=== PATIENT | male | born 1985 | race Two or more races ===

== ENCOUNTER 2016-06-01 05:29 | Emergency (ER) | payer MEDICAID ==
[~2016-06-01] VITALS: Ht 170.2 cm; Wt 86.2 kg
[2016-06-01] MEDS ORDERED: LORazepam 2MG/ML-1ML VIAL IV ONE (07:30)
[2016-06-01 07:42] LABS: Basophils # (auto) 0 uL; Basophils % (auto) 0.5 % (0.0-2.0); Eosinophils # (auto) 0.2 uL; Eosinophils % (auto) 3.5 % (0.0-7.0); Hematocrit 46.1 % (41.0-53.0); Hemoglobin 15.3 g/dL (13.5-17.5); Lymphocytes # (auto) 1.6 uL; Lymphocytes % (auto) 23.7 % (10.0-50.0); Mean Corpuscular Hemoglobin 30.5 pg (28.0-32.0); Mean Corpuscular Hgb Conc. 33.1 g/dL (32.0-36.0); Mean Corpuscular Volume 92.1 fL (80.0-100.0); Mean Platelet Volume 8.6 fL (7.4-10.4); Monocytes # (auto) 0.5 uL; Monocytes % (auto) 7.1 % (0.0-12.0); Neutrophils # (auto) 4.4 uL; Neutrophils % (auto) 65.2 % (37.0-80.0); Platelet Count (auto) 227 10^3/uL (140-450); Red Cell Distribution Width 13.6 % (11.6-16.0); White Blood Cell 6.8 10^3/uL (4.4-10.8)
[2016-06-01 08:06] LABS: BUN/Creatinine Ratio 28.9; Bilirubin, Total 0.7 mg/dL (0.2-1.0); Calcium 8.6 mg/dL (8.5-10.1); Magnesium 2.5 mg/dL (1.6-2.6); Potassium 3.9 mmol/L (3.5-5.1); Total Protein 7.1 g/dL (6.4-8.2)
[2016-06-01 10:54] VITALS: BP 109/62
[2016-06-01 11:53] LABS: Urine RBC None Seen /hpf (0 - 3)
[2016-06-01 12:09] LABS: Urine Bilirubin Negative (Negative); Urine Blood Negative /uL (Negative); Urine Color Yellow (Yellow); Urine Glucose Normal (Normal); Urine Nitrite Negative (Negative); Urine Urobilinogen Normal (Negative); Urine pH 5.5 (5.0-8.0)
[2016-06-01 12:10] LABS: Urine Ketone 1+ (Negative)
== END 2016-06-01 12:22 | disposition home or self-care (01) ==
LOC: ER 05:29 → EDBD 05:29 → ER 12:22
DX: G40.909 Epilepsy, unspecified, not intractable, without status epilepticus (principal); F12.10 Cannabis abuse, uncomplicated
CPT/HCPCS: 36415; 80053; 81001; 82542; 83735; 85025; 93005; 96374; 99285; J2060

== ENCOUNTER 2024-09-11 10:42 | Inpatient (IN) | payer MEDICAID, OTHER ==
[~2024-09-11] VITALS: Ht 170.2 cm; Wt 90.5 kg
[2024-09-11 11:19] VITALS: PULSE 83; RESP 20; O2SAT 98
--- NOTE | 2024-09-11 11:33 | ED.PDOC ---
GI ASSESSMENT HPI Comments 38y M who presents to the ED for chief complaint of abdominal pain. Pt states he has been having abdominal pain for the past 1x week. Pt states he went to urgent care at for further evaluation and states they found blood in his urine sample and referred him to the ED for further evaluation. Pt in the ED, states he has also been having RUQ and LUQ abdominal pain. Pt states the pain is intermittent, tightness in nature, with associated symptoms of nausea, vomiting chills and fevers and diarrhea. Pt states he ate out Monday 2 days prior and states he has been having 1x diarrhea episodes for the past 2 days. Pt denies having taken any medications for his symptoms. Pt otherwise states he has history of HTN and epilepsy but states he does not take medications for them currently. Pt does state he has history of 2x hernia repairs in the past. Pt denies any other symptoms at this time. Chief Complaint: Abdominal Pain Time Seen by MD: 11:31 Reviewed Notes: Medications, Allergies Allergies: Coded Allergies: NO KNOWN ALLERGIES (Unverified , 12/26/22) Home Meds No Active Prescriptions or Reported Meds Information Source: Patient Mode of Arrival: Ambulatory Past Medical History PAST MEDICAL HISTORY: HTN, Seizures Surgical History: Hernia Repair Family History Family History: Reviewed,noncontributory to illness Social History Smoker: Non-Smoker Alcohol: Denies ETOH Use Drugs: Denies Drug Use Lives In: Home Constitutional: reports: chills, fever; denies: diaphoresis, fatigue, malaise, sweats, weakness, others EENTM: denies: blurred vision, double vision, ear bleeding, ear discharge, ear drainage, ear pain, ear ringing, eye pain, eye redness, hearing loss, mouth pain, mouth swelling, nasal discharge, nose bleeding, nose congestion, nose pain, photophobia, tearing, throat pain, throat swelling, voice changes, others Respiratory: denies: cough, hemoptysis, orthopnea, SOB at rest, shortness of breath, SOB with excertion, stridor, wheezing, others Cardiovascular: denies: chest pain, dizzy spells, diaphoresis, Dyspnea on exertion, edema, irregular heart beat, left arm pain, lightheadedness, palpitations, PND, syncope, others Gastrointestinal: reports: nausea, vomiting; denies: abdomen distended, abdominal pain, blood streaked bowels, constipated, diarrhea, dysphagia, difficulty swallowing, hematemesis, melena, poor appetite, poor fluid intake, rectal bleeding, rectal pain, others Genitourinary: reports: hematuria; denies: burning, dysuria, flank pain, frequency, incontinence, penile discharge, penile sore, pain, testicle pain, testicle swelling, urgency, others Neurological: denies: dizziness, fainting, headache, left sided numbness, left sided weakness, numbness, paresthesia, pre-existing deficit, right sided numbness, right sided weakness, seizure, speech problems, tingling, tremors, weakness, others Musculoskeletal: denies: back pain, gout, joint pain, joint swelling, muscle pain, muscle stiffness, neck pain, others Integumetry: denies: bruises, change in color, change in hair/nails, dryness, laceration, lesions, lumps, rash, wounds, others Allergic/Immunocompromised: denies: Difficulty Healing, Frequent Infections, Hives, Itching, others Hematologic/Lymphatic: denies: anemia, blood clots, easy bleeding, easy bruising, swollen glands, others Endocrine: denies: excessive hunger, excessive sweating, excessive thirst, excessive urination, flushing, intolerance to cold, intolerance to heat, unexpla ined weight gain, unexplained weight loss, others Psychiatric: denies: anxiety, bipolar disorder, depression, hopeless, panic disorder, schizophrenia, sleepless, suicidal, others All Other Systems: Reviewed and Negative Physical Exam General Appearance: Mild Distress HEENT: Other (Pupils and face symmetric. Moist mucous membranes.) Neck: Full Range of Motion, Normal Inspection Respiratory: Lungs Clear, No Accessory Muscle Use, No Respiratory Distress, Normal Breath Sounds Cardiovascular: No Edema, No JVD, Regular Rate/Rhythm Breast Exam: Deferred Gastrointestinal: Epigastric, LUQ, Soft Genitalia: Deferred Pelvic: Deferred Rectal: Deferred Extremities: Normal inspection, Normal range of motion, Non-tender, No pedal e kaylene Neurologic: Alert (Oriented x4), Normal Affect, Normal Mood, Other (Ambulatory) Cerebellar Function: NOT DONE Reflexes: NOT DONE Skin: Dry, Normal Color, Warm Lymphatic: NOT DONE Was a procedure done? Was a procedure done?: No GI differential Dx Differential Diagnosis: Appendicitis, Cholangitis, Cholecystitis, Diverticular disease, Gastritis/PUD, Gastroenteritis, Hepatitis, Inflammatory BD, Pancreatitis, UTI, Dehydration, Electrolyte Imbalance, Food Poisoning, Bacterial, Viral, Hypovolemia, Stress Ulcer, Kidney Stone X-Ray, Labs, Meds, VS Vital Signs Date Time Temp Pulse Resp B/P (MAP) Pulse Ox O2 Delivery O2 Flow Rate FiO2 09/11/24 12:24 83 18 152/97 09/11/24 11:38 83 20 138/85 09/11/24 11:19 83 20 98 Room Air* 0 21 09/11/24 11:18 98.3 83 20 138/85 (102) 98 98.3 09/11/24 10:56 98.1 84 18 156/92 (113) 98 98.1 Lab Test 09/11/24 12:53 09/11/24 11:20 09/11/24 10:58 Range/Units Lactic Acid Level 2.0 0.4-2.0 mmol/L White Blood Count 11.3 H 4.4-10.8 10^3/uL Red Blood Count 4.82 4.5-5.90 10^6/uL Hemoglobin 15.3 13.5-17.5 g/dL Hematocrit 44.4 41.0-53.0 % Mean Corpuscular Volume 92.2 80.0-100.0 fL Mean Corpuscular Hemoglobin 31.7 28.0-32.0 pg Mean Corpuscular Hemoglobin Concent 34.4 32.0-36.0 g/dL Red Cell Distribution Width 13.7 11.8-14.3 % Platelet Count 241 140-450 10^3/uL Mean Platelet Volume 8.6 6.9-10.8 fL Neutrophils (%) (Auto) 80.0 37.0-80.0 % Lymphocytes (%) (Auto) 10.6 10.0-50.0 % Monocytes (%) (Auto) 7.2 0.0-12.0 % Eosinophils (%) (Auto) 1.9 0.0-7.0 % Basophils (%) (Auto) 0.3 0.0-2.0 % Neutrophils # (Auto) 9.1 H 1.6-8.6 10 ^3/uL Lymphocytes # (Auto) 1.2 0.4-5.4 10 ^3/uL Monocytes # (Auto) 0.8 0-1.3 10 ^3/uL Eosinophils # (Auto) 0.2 0-0.8 10 ^3/uL Basophils # (Auto) 0 0-0.2 10 ^3/uL Nucleated Red Blood Cells 0.0 % Sodium Level 136 136-145 mmol/L Potassium Level 3.8 3.5-5.1 mmol/L Chloride Level 103 98-107 mmol/L Carbon Dioxide Level 23 20-31 mmol/L Anion Gap 10 5-15 Blood Urea Nitrogen 13 9-23 mg/dL Creatinine 0.80 0.700-1.30 mg/dL Glomerular Filtration Rate Calc 115 >90 mL/min BUN/Creatinine Ratio 16.3 10.0-20.0 Serum Glucose 94 74-106 mg/dL Calcium Level 9.6 8.7-10.4 mg/dL Total Bilirubin 1.9 H 0.2-1.0 mg/dL Aspartate Amino Transferase (AST) 82 H 13-40 U/L Alanine Aminotransferase (ALT) 308 H 7-40 U/L Alkaline Phosphatase 409 H 46-116 U/L Total Protein 7.5 5.7-8.2 g/dL Albumin 5.1 H 3.2-4.8 g/dL Lipase 69 H 12-53 U/L Urine Color Dark-yellow Yellow Urine Clarity Clear Clear Urine pH 6.5 5.0-9.0 Urine Specific [place] 1.038 H 1.001-1.035 Urine Protein 1+ H Negative Urine Ketones 2+ H Negative Urine Blood Negative Negative /uL Urine Nitrite Negative Negative Urine Bilirubin 1+ Negative Urine Urobilinogen 12 H Negative mg/dL Urine Leukocyte Esterase Negative Negative /uL Urine RBC 1 0 - 3 /hpf Urine Microscopic WBC 1 0-3 /HPF Urine Squamous Epithelial Cells None seen <5 /hpf Urine Bacteria None seen None Seen /hpf Urine Mucus Moderate None Seen Urine Glucose Normal Normal mg/dL Current Medications Medications (Trade) Dose Ordered Sig/Georgina Route Start Time Stop Time Status Last Admin Sodium Chloride 2,000 ml @ 1,000 mls/hr Q2H ONCE IV 09/11/24 11:15 09/11/24 13:14 DC 09/11/24 11:38 Ondansetron HCl (Zofran) 4 mg ONCE ONCE IV 09/11/24 11:15 09/11/24 11:16 DC 09/11/24 11:36 Morphine Sulfate 4 mg ONCE ONCE IV 09/11/24 11:15 09/11/24 11:16 DC 09/11/24 11:38 Pantoprazole Sodium (Protonix) 40 mg ONCE ONCE IV 09/11/24 11:15 09/11/24 11:16 DC 09/11/24 11:36 Piperacillin Sod/ Tazobactam Sod 100 ml @ 100 mls/hr ONCE ONCE IV 09/11/24 12:45 09/11/24 13:44 DC 09/11/24 13:32 [place] [address] Ph: [phone] DIAGNOSTIC IMAGING Diagnostic Imaging Report : [id number] Signed PATIENT: ISATU MCFARLANE AACCT: [id number] UNIT: [id number] : 1985 LOC: ER ROOM / BED: / AGE / SEX: 38 / M ADM STATUS: REG ER SERVICE 1104 ORDERING PHYSICIAN: RAKAN CARTER MD PROCEDURE(s): ABPL - CT AB PEL WO CON-NO ORAL OR IV REASON: upper abd pain, n/v/d, hematuria ORDER NUMBER(s): [id number], ACCESSION NUMBER(s): [id number] CLINICAL INFORMATION: Upper abdominal pain. Nausea, vomiting, diarrhea. Hematuria. TECHNIQUE: Axial CT images of the abdomen and pelvis were obtained without IV contrast. Coronal and sagittal reformatted images were obtained, reviewed, and stored. Evaluation of the parenchymal organs is limited without IV contrast. Evaluation of the bowel and mesentery is limited without oral contrast. All CT scans at this medical facility are performed using dose modulation techniques as appropriate to a performed exam including the following: Automated exposure control was utilized; adjustment of the MA and/or KV according to patient size; and use of iterative reconstruction technique. CTDIvol = 12.3 mGy DLP = 678.96 mGy-cm COMPARISON: None FINDINGS: Lung bases: Lung bases are clear. Liver: Grossly unremarkable in its noncontrast enhanced appearance. No abnormal density or focal lesion identified. Biliary: Mild layering density in the gallbladder, possible sludge or layering gallstones. Spleen: Unremarkable. Pancreas: Grossly unremarkable in its noncontrast enhanced appearance. Adrenal glands: Unremarkable. No mass. Kidneys: No hydronephrosis. No renal or ureteral calculi. Aorta/Vascular: No aneurysm or significant calcification. Retroperitoneum: No mass or lymphadenopathy. Bowel/mesentery: No small bowel obstruction. Nonspecific nondilated fluid-filled small bowel loops. Appendix is visualized and appears unremarkable. Scattered colonic diverticula without adjacent inflammatory changes to suggest diverticulitis. Pelvic organs: Grossly unremarkable. Bladder: Bladder is underdistended and suboptimally evaluated. No gross abnormality identified. Abdominal wall: Moderate-sized direct fat containing left inguinal hernia. There is a small fat containing right inguinal hernia. Bones: No acute fracture or suspicious intraosseous lesion. IMPRESSION: 1. Scattered colonic diverticula without adjacent inflammatory changes to suggest diverticulitis. 2. Nonspecific nondilated fluid-filled small bowel loops. Findings may be seen with ileus or enteritis in the appropriate clinical setting. No small bowel obstruction. 3. Moderate fat containing left inguinal hernia. Small fat containing right inguinal hernia. 4. Layering density in the gallbladder, possible sludge or layering gallstones. Correlate with clinical findings. If clinically indicated, ultrasound could be obtained. ATED BY: SEB GAMEZ DO DICTATED DATE/TIME: 09/11/24 113 SIGNED BY: SEB GAMEZ DO SIGNED DATE/TIME: 09/11/24 1138 CC: [place] [address] Ph: [phone] DIAGNOSTIC IMAGING Diagnostic Imaging Report : [id number] Signed PATIENT: ISATU MCFARLANECCT: [id number] UNIT: [id number] : 1985 LOC: ER ROOM / BED: / AGE / SEX: 38 / M ADM STATUS: REG ER SERVICE 1240 ORDERING PHYSICIAN: RAKAN CARTER MD PROCEDURE(s): ABDL - ABDOMEN LIMITED REASON: RUQ pain ORDER NUMBER(s): [id number], ACCESSION NUMBER(s): [id number] INDICATION: RUQ pain TECHNIQUE: Multiple real-time sonographic images were obtained of the right upper quadrant. COMPARISON: None FINDINGS: The liver demonstrates increased echotexture without focal mass lesions. The liver measures 18.1 cm. There is no intrahepatic or extrahepatic ductal dilatation. The common duct measures 0.6 cm. The gallbladder is without evidence of stone or sludge. The gallbladder wall measures 0.3 cm and is within normal limits. The right kidney measures 11.7 cm. The right kidney is normal in contour, size, and shape. The echogenicity is normal. There is no hydronephrosis. The pancreas is not well visualized due to overlying bowel gas. IMPRESSION: Hepatic steatosis. Hepatomegaly. ATED BY: ENRICO ALANIS MD DICTATED DATE/TIME: 09/11/241346 SIGNED BY: ENRICO ALANIS MD SIGNED DATE/TIME: 09/11/241346 CC: X-Ray, Labs, Meds, VS Comment 38-year-old male with a history of hypertension and seizures referred by urgent care complaining of upper abdominal pain, nausea, vomiting and diarrhea Vitals remarkable for BP 156/92 Exam remarkable for right greater than left upper quadrant and epigastric tenderness to palpation Rhythm strip independently interpreted by me: Sinus rhythm, rate 84, no ectopy. CT abdomen and pelvis IMPRESSION: 1. Scattered colonic diverticula without adjacent inflammatory changes to suggest diverticulitis. 2. Nonspecific nondilated fluid-filled small bowel loops. Findings may be seen with ileus or enteritis in the appropriate clinical setting. No small bowel obstruction. 3. Moderate fat containing left inguinal hernia. Small fat containing right inguinal hernia. 4. Layering density in the gallbladder, possible sludge or layering gallstones. Correlate with clinical findings. If clinically indicated, ultrasound could be obtained. Right upper quadrant ultrasound pending CBC remarkable for WBC 11.3, CMP remarkable for total bili 1.9, AST 82, ALT 308, alkaline phos 409, lipase 69, UA positive for ketones, protein and bili but no blood Patient treated with the following in the ED: 2 L 0.9 normal saline IV bolus, morphine 4 mg IV, Zofran 4 mg IV, Protonix 40 mg IV, Zosyn 4.5 g IV On re-evaluation, patient states pain has improved. Vitals were stable. Plan is to admit the patient for GI evaluation. Time of 1ST Reevaluation: 12:38 Reevaluation 1ST: Improved Patient Education/Counseling: Diagnosis, Treatment Family Education/Counseling: No Family Present SEPSIS Sepsis Screen Date sepsis recognized/suspect: Sep 11, 2024 Time Sepsis recognized/suspect: 1058 Recent Procedure: No On Antibiotic Therapy: No Respiratory Rate >20: No Heart Rate >90: No Temp<36 C (96.8 F) or >38.3 C: No SBP <90 or MAP <65 mmHG: No New Acute Mental Status Change: No Is the patient on CPAP, BIPAP,: No Physician Orders Ct Ab Pel Wo Con-No Oral Or Iv (09/11/24 11:04) Blood Culture (09/11/24 12:38) Abdomen Limited (09/11/24 12:40) Pantoprazole (Protonix) (09/12/24 10:00) Metronidazole 500mg/100ml (Flagyl 500mg/ (09/11/24 14:00) Hydralazine Injection (Apresoline Inject (09/11/24 13:30) Allergies (09/11/24 13:17) Code Status (09/11/24 13:17) Sodium Chloride 0.9% (09/11/24 13:30) Oxygen Per Hour (09/11/24 13:17) Hydrocodone-Acet 5/325mg Tab ([place] 5/32 (09/11/24 13:30) Ondansetron Hcl (Zofran) (09/11/24 13:30) Docusate Sodium Capsule (Colace Capsule) (09/11/24 13:30) Complete Blood Count (09/12/24 04:00) Comprehensive Metabolic Panel (09/12/24 04:00) Condition: Serious (09/11/24 13:17) Acetaminophen Tablet (Tylenol Tablet) (09/11/24 13:30) Clear Liq Diet (09/11/24 Lunch) Bedrest With Bathroom Privileg (09/11/24 13:17) Morphine Sulfate Injection (09/11/24 13:30) Sequential Compression Device (09/11/24 ) Ceftriaxone 1gm/50ml D5w (Rocephin) (09/11/24 13:52) Vital Signs Date Time Temp Pulse Resp B/P (MAP) Pulse Ox O2 Delivery O2 Flow Rate FiO2 09/11/24 12:24 83 18 152/97 09/11/24 11:38 83 20 138/85 09/11/24 11:19 83 20 98 Room Air* 0 21 09/11/24 11:18 98.3 83 20 138/85 (102) 98 98.3 09/11/24 10:56 98.1 84 18 156/92 (113) 98 98.1 Laboratory Tests Test 09/11/24 11:20 09/11/24 12:53 White Blood Count 11.3 10^3/uL (4.4-10.8) H Lactic Acid Level 2.0 mmol/L (0.4-2.0) Medications Medications Dose Ordered Sig/Georgina Route Start Time Stop Time Status Last Admin Dose Admin Morphine Sulfate 4 mg ONCE ONCE IV 09/11/24 11:15 09/11/24 11:16 DC 09/11/24 11:38 Ondansetron HCl 4 mg ONCE ONCE IV 09/11/24 11:15 09/11/24 11:16 DC 09/11/24 11:36 Pantoprazole Sodium 40 mg ONCE ONCE IV 09/11/24 11:15 09/11/24 11:16 DC 09/11/24 11:36 Piperacillin Sod/ Tazobactam Sod 100 ml @ 100 mls/hr ONCE ONCE IV 09/11/24 12:45 09/11/24 13:44 DC 09/11/24 13:32 Sodium Chloride 2,000 ml @ 1,000 mls/hr Q2H ONCE IV 09/11/24 11:15 09/11/24 13:14 DC 09/11/24 11:38 Departure 1 Departure Time of Disposition: 12:39 Impression: Primary Impression: Abdominal pain Qualified Codes: R10.10 - Upper abdominal pain, unspecified Additional Impressions: Vomiting and diarrhea Transaminitis Hyperbilirubinemia Disposition: ADMITTED INPATIENT Admit to: Med Surg Condition: Guarded e-Prescriptions No Active Prescriptions or Reported Meds Critical Care Note Critical Care Time?: No Stability Stability form required: No Heart Score Heart Score: Heart Score Response (Comments) Value History N/A 0 EKG N/A 0 Age N/A 0 Risk Factors N/A 0 Troponin N/A 0 Total 0 I personally scribed for RAKAN CARTER MD ([email or web address]) on 09/11/24 at 11:33. Electronically submitted by Delvin CARRIZALES). I personally scribed for RAKAN CARTER MD ([facility]) on 09/11/24 at 11:50. Electronically submitted by Delvin Santa ([facility]). I personally scribed for RAKAN CARTER MD ([facility]) on 09/11/24 at 14:15. Electronically submitted by Delvin Santa ([facility]). RAKAN CARTER MD Sep 11, 2024 11:33
[2024-09-11] MEDS: PANTOPRAZOLE 40 MG/10 ML VIAL INJ IV ONE (11:36)
[2024-09-11] MEDS: ONDANSETRON HCL 4 MG/2 ML VIAL IV ONE (11:36)
[2024-09-11] MEDS: MORPHINE SULFATE 4 MG/ML SYR/VIAL IV ONE (11:38)
[2024-09-11] MEDS: SODIUM CHLORIDE 0.9% 2,000 ML IV ONE (11:38)
--- NOTE | 2024-09-11 11:40 | DVH ---
CLINICAL INFORMATION: Upper abdominal pain. Nausea, vomiting, diarrhea. Hematuria. TECHNIQUE: Axial CT images of the abdomen and pelvis were obtained without IV contrast. Coronal and s agittal reformatted images were obtained, reviewed, and stored. Evaluation of the parenchymal organs is limited without IV contrast. Evaluation of the bowel and mesentery is limited without oral contras t. All CT scans at this medical facility are performed using dose modulation techniques as appropriat e to a performed exam including the following: Automated exposure control was utilized; adjustment of the MA and/or KV according to patient size; and use of iterative reconstruction technique. CTDIvol = 12.3 mGy DLP = 678.96 mGy-cm COMPARISON: None FINDINGS: Lung bases: Lung bases are clear. Liver: Grossly unremarkable in its noncontrast enhanced appearance. No abnormal density or focal lesi on identified. Biliary: Mild layering density in the gallbladder, possible sludge or layering gallstones. Spleen: Unremarkable. Pancreas: Grossly unremarkable in its noncontrast enhanced appearance. Adrenal glands: Unremarkable. No mass. Kidneys: No hydronephrosis. No renal or ureteral calculi. Aorta/Vascular: No aneurysm or significant calcification. Retroperitoneum: No mass or lymphadenopathy. Bowel/mesentery: No small bowel obstruction. Nonspecific nondilated fluid-filled small bowel loops. A ppendix is visualized and appears unremarkable. Scattered colonic diverticula without adjacent infla mmatory changes to suggest diverticulitis. Pelvic organs: Grossly unremarkable. Bladder: Bladder is underdistended and suboptimally evaluated. No gross abnormality identified. Abdominal wall: Moderate-sized direct fat containing left inguinal hernia. There is a small fat conta ining right inguinal hernia. Bones: No acute fracture or suspicious intraosseous lesion. IMPRESSION: 1. Scattered colonic diverticula without adjacent inflammatory changes to suggest diverticulitis. 2. Nonspecific nondilated fluid-filled small bowel loops. Findings may be seen with ileus or enteriti s in the appropriate clinical setting. No small bowel obstruction. 3. Moderate fat containing left inguinal hernia. Small fat containing right inguinal hernia. 4. Layering density in the gallbladder, possible sludge or layering gallstones. Correlate with clinic al findings. If clinically indicated, ultrasound could be obtained.
[2024-09-11 11:50] LABS: Urine Protein, UAD 1+ (Negative)
[2024-09-11 11:59] LABS: Hematocrit 44.4 % (41.0-53.0); Hemoglobin 15.3 g/dL (13.5-17.5); Mean Corpuscular Hemoglobin 31.7 pg (28.0-32.0); Mean Corpuscular Volume 92.2 fL (80.0-100.0); Nucleated Red Blood Cells % 0.0 %
[2024-09-11 12:16] LABS: Anion Gap 10 (5-15); BUN/Creatinine Ratio 16.3 (10.0-20.0); Blood Urea Nitrogen 13 mg/dL (9-23); Calcium 9.6 mg/dL (8.7-10.4); Carbon Dioxide 23 mmol/L (20-31); Chloride 103 mmol/L (98-107); Glucose 94 mg/dL (74-106); Potassium 3.8 mmol/L (3.5-5.1); Sodium 136 mmol/L (136-145); Total Protein 7.5 g/dL (5.7-8.2)
[2024-09-11 12:20] LABS: Alanine Aminotransferase 308 U/L (7-40); Albumin 5.1 g/dL (3.2-4.8); Alkaline Phosphatase 409 U/L (46-116); Bilirubin, Total 1.9 mg/dL (0.2-1.0); Lipase 69 U/L (12-53)
[2024-09-11] MEDS ORDERED: ONDANSETRON HCL 4 MG/2 ML VIAL IV PRN (13:30)
[2024-09-11] MEDS ORDERED: DOCUSATE SOD 100 MG CAP PO PRN (13:30)
[2024-09-11] MEDS: SODIUM CHLORIDE 0.9% 1,000 ML IV SCH (13:30)
[2024-09-11] MEDS ORDERED: MORPHINE SULFATE INJ 2 MG/ml SYRG IV PRN ×2 (13:30→15:45)
[2024-09-11] MEDS ORDERED: hydrALAZINE HCL 20 MG/ML VL IV PRN (13:30)
[2024-09-11] MEDS ORDERED: ACETAMINOPHEN 325 MG TAB PO PRN (13:30)
[2024-09-11] MEDS: PIPERACILLIN-TAZO 4.5GM 100 ML IV ONE (13:32)
--- NOTE | 2024-09-11 13:50 | DVH ---
INDICATION: RUQ pain TECHNIQUE: Multiple real-time sonographic images were obtained of the right upper quadrant. COMPARISON: None FINDINGS: The liver demonstrates increased echotexture without focal mass lesions. The liver measure s 18.1 cm. There is no intrahepatic or extrahepatic ductal dilatation. The common duct measures 0.6 cm. The gallbladder is without evidence of stone or sludge. The gallbladder wall measures 0.3 cm and is w ithin normal limits. The right kidney measures 11.7 cm. The right kidney is normal in contour, size, and shape. The echoge nicity is normal. There is no hydronephrosis. The pancreas is not well visualized due to overlying bowel gas. IMPRESSION: Hepatic steatosis. Hepatomegaly.
[2024-09-11] MEDS: cefTRIAXone 1GM/50ML D5W 50 ML IV SCH (14:30)
[2024-09-11] MEDS ORDERED: NITROGLYCERIN 0.4 MG SL TAB SL PRN (15:45)
--- NOTE | 2024-09-11 15:45 | DVHHP2 ---
History of Present Illness Reason for Visit: Acute abdominal pain History of Present Illness The patient is a 38-year-old male with past medical history of hypertension and seizures disorder noncompliant with medication regimen presented to [facility] ED with complaint of abdominal pain. Patient reports he has been experiencing abdominal pain for the past 1 week, went to [facility] urgent care and was found to have blood in his urine sample and was referred to the ED for further evaluation. Patient was seen and evaluated in the ED with upper quadrant abdominal pain, intermittent, tightness in nature, rating 8/10 numeric scale, associated with nausea, vomiting, chills, fever, and diarrhea. Laboratory data shows WBC 11.3, platelets 241, sodium 136, potassium 3.8, BUN 13, creatinine 0.80, glucose 94, calcium 9.6, total bilirubin 1.8, alkaline phos for 0 nine, AST 82, ALT 308, lipase 69, blood pressure 152/97, heart rate 83, temperature 98.3 F, O2 saturation 98% on room air. Abdomen/pelvis CT revealing scattered colonic diverticula without adjacent inflammatory changes to suggest diverticulitis; nonspecific nondilated fluid filled small bowel loops, finding may be seen with ileus or enteritis; moderate fat containing left inguinal hernia, left fat containing right inguinal hernia; layering density in the gallbladder, possible sludge or layering gallstones. Single organ ultrasound revealing hepatomegaly, hepatic steatosis. Past Medical History HTN, Seizures Past Surgical History Hernia Repair Family History Reviewed, noncontributory to the management of this case. Past Social History The patient lives at home, denies smoking, alcohol or illicit drugs abuse. Review of Systems Constitutional: Yes: Fever, Chills; No: Sweats, Weakness, Malaise, Other Eyes: No: Pain, Vision change, Conjunctivae inflammation, Eyelid inflammation, Other, Redness ENT: No: Ear pain, Ear discharge, Nose pain, Nose discharge, Nose congestion, Mouth pain, Mouth swelling, Throat pain, Throat swelling, Other Respiratory: No: Cough, Dry, Shortness of breath, SOB with excertion, Wheezing, Hemoptysis, Pleuritic Pain, Sputum, Wheezing, Other Cardiovascular: No: Chest Pain, Palpitations, Orthopnea, Paroxysmal Noc. Dyspnea, Edema, Lt Headedness, Other Gastrointestinal: Nausea, Vomiting; No: Abdominal Pain, Diarrhea, Constipation, Melena, Hematochezia, Other Genitourinary: No Dysuria, No Frequency, No Incontinence; Hematuria; No Retention, No Other Musculoskeletal: No: other, neck pain, shoulder pain, arm pain, back pain, hand pain, leg pain, foot pain Skin: No: Rash, Lesions, Jaundice, Bruising, Other Neurological: No: Weakness, Numbness, Incoordination, Change in speech, Confusion, Seizures, Other Allergies: Coded Allergies: NO KNOWN ALLERGIES (Unverified , 12/26/22) Medications Current Medications Medications Dose Ordered Sig/Georgina Route Start Time Stop Time Status Last Admin Dose Admin Pantoprazole Sodium 40 mg DAILY IV 09/12/24 10:00 Metronidazole 100 ml @ 100 mls/hr Q8HR IV 09/11/24 14:00 09/11/24 14:50 100 MLS/HR Ceftriaxone Sodium 50 ml @ 100 mls/hr DAILY@09 IV 09/11/24 13:52 09/11/24 14:30 100 MLS/HR Hydralazine HCl 10 mg Q6HP PRN IV 09/11/24 13:30 Sodium Chloride 1,000 ml @ 60 mls/hr [id number] IV 09/11/24 13:30 Acetaminophen/ Hydrocodone Bitart 1 tab Q4HP PRN PO 09/11/24 13:30 Ondansetron HCl 4 mg Q4HP PRN IV 09/11/24 13:30 Docusate Sodium 100 mg BIDPRN PRN PO 09/11/24 13:30 Acetaminophen 650 mg Q6HP PRN PO 09/11/24 13:30 Morphine Sulfate 2 mg Q4HPRN PRN IV 09/11/24 13:30 Exam Vital Signs Vital Signs Date Time Temp Pulse Resp B/P (MAP) Pulse Ox O2 Delivery O2 Flow Rate FiO2 09/11/24 14:58 78 18 134/96 (109) 99 09/11/24 11:19 Room Air* 0 21 09/11/24 11:18 98.3 98.3 General Appearance: Alert, Oriented X3, Cooperative, No acute distress HEENT: Atraumatic, PERRLA, EOMI, Mucous membr. moist/pink Respiratory: Clear to auscultation, Normal air movement Cardiovascular: Regular rate, Normal S1, Normal S2, No murmurs Abdominal: Normal bowel sounds, Soft, No hepatospenomegaly, No masses, Other (Reports tenderness) Extremities: No clubbing, No cyanosis, No edema, Normal pulses, No tenderness/swelling Skin: No rashes, No breakdown, No significant lesion Neuro: Normal gait, Normal speech, Strength at 5/5 X4 ext, Normal tone, Sensation intact, Cranial nerves 3-12 NL, Reflexes 2+ Psych/Mental Status: Mental status NL, Mood NL Labs/Xrays Labs Test 09/11/24 12:53 09/11/24 11:20 09/11/24 10:58 Range/Units Lactic Acid Level 2.0 0.4-2.0 mmol/L White Blood Count 11.3 H 4.4-10.8 10^3/uL Red Blood Count 4.82 4.5-5.90 10^6/uL Hemoglobin 15.3 13.5-17.5 g/dL Hematocrit 44.4 41.0-53.0 % Mean Corpuscular Volume 92.2 80.0-100.0 fL Mean Corpuscular Hemoglobin 31.7 28.0-32.0 pg Mean Corpuscular Hemoglobin Concent 34.4 32.0-36.0 g/dL Red Cell Distribution Width 13.7 11.8-14.3 % Platelet Count 241 140-450 10^3/uL Mean Platelet Volume 8.6 6.9-10.8 fL Neutrophils (%) (Auto) 80.0 37.0-80.0 % Lymphocytes (%) (Auto) 10.6 10.0-50.0 % Monocytes (%) (Auto) 7.2 0.0-12.0 % Eosinophils (%) (Auto) 1.9 0.0-7.0 % Basophils (%) (Auto) 0.3 0.0-2.0 % Neutrophils # (Auto) 9.1 H 1.6-8.6 10 ^3/uL Lymphocytes # (Auto) 1.2 0.4-5.4 10 ^3/uL Monocytes # (Auto) 0.8 0-1.3 10 ^3/uL Eosinophils # (Auto) 0.2 0-0.8 10 ^3/uL Basophils # (Auto) 0 0-0.2 10 ^3/uL Nucleated Red Blood Cells 0.0 % Sodium Level 136 136-145 mmol/L Potassium Level 3.8 3.5-5.1 mmol/L Chloride Level 103 98-107 mmol/L Carbon Dioxide Level 23 20-31 mmol/L Anion Gap 10 5-15 Blood Urea Nitrogen 13 9-23 mg/dL Creatinine 0.80 0.700-1.30 mg/dL Glomerular Filtration Rate Calc 115 >90 mL/min BUN/Creatinine Ratio 16.3 10.0-20.0 Serum Glucose 94 74-106 mg/dL Calcium Level 9.6 8.7-10.4 mg/dL Total Bilirubin 1.9 H 0.2-1.0 mg/dL Aspartate Amino Transferase (AST) 82 H 13-40 U/L Alanine Aminotransferase (ALT) 308 H 7-40 U/L Alkaline Phosphatase 409 H 46-116 U/L Total Protein 7.5 5.7-8.2 g/dL Albumin 5.1 H 3.2-4.8 g/dL Lipase 69 H 12-53 U/L Urine Color Dark-yellow Yellow Urine Clarity Clear Clear Urine pH 6.5 5.0-9.0 Urine Specific [place] 1.038 H 1.001-1.035 Urine Protein 1+ H Negative Urine Ketones 2+ H Negative Urine Blood Negative Negative /uL Urine Nitrite Negative Negative Urine Bilirubin 1+ Negative Urine Urobilinogen 12 H Negative mg/dL Urine Leukocyte Esterase Negative Negative /uL Urine RBC 1 0 - 3 /hpf Urine Microscopic WBC 1 0-3 /HPF Urine Squamous Epithelial Cells None seen <5 /hpf Urine Bacteria None seen None Seen /hpf Urine Mucus Moderate None Seen Urine Glucose Normal Normal mg/dL PATIENT: ISATU MCFARLANE AACCT: [id number] UNIT: [id number] : 1985 LOC: ER ROOM / BED: / AGE / SEX: 38 / M ADM STATUS: REG ER SERVICE 1104 ORDERING PHYSICIAN: RAKAN CARTER MD PROCEDURE(s): ABPL - CT AB PEL WO CON-NO ORAL OR IV REASON: upper abd pain, n/v/d, hematuria ORDER NUMBER(s): [id number], ACCESSION NUMBER(s): [id number] CLINICAL INFORMATION: Upper abdominal pain. Nausea, vomiting, diarrhea. Hematuria. TECHNIQUE: Axial CT images of the abdomen and pelvis were obtained without IV contrast. Coronal and sagittal reformatted images were obtained, reviewed, and stored. Evaluation of the parenchymal organs is limited without IV contrast. Evaluation of the bowel and mesentery is limited without oral contrast. All CT scans at this medical facility are performed using dose modulation techniques as appropriate to a performed exam including the following: Automated exposure control was utilized; adjustment of the MA and/or KV according to patient size; and use of iterative reconstruction technique. CTDIvol = 12.3 mGy DLP = 678.96 mGy-cm COMPARISON: None FINDINGS: Lung bases: Lung bases are clear. Liver: Grossly unremarkable in its noncontrast enhanced appearance. No abnormal density or focal lesion identified. Biliary: Mild layering density in the gallbladder, possible sludge or layering gallstones. Spleen: Unremarkable. Pancreas: Grossly unremarkable in its noncontrast enhanced appearance. Adrenal glands: Unremarkable. No mass. Kidneys: No hydronephrosis. No renal or ureteral calculi. Aorta/Vascular: No aneurysm or significant calcification. Retroperitoneum: No mass or lymphadenopathy. Bowel/mesentery: No small bowel obstruction. Nonspecific nondilated fluid-filled small bowel loops. Appendix is visualized and appears unremarkable. Scattered colonic diverticula without adjacent inflammatory changes to suggest diverticulitis. Pelvic organs: Grossly unremarkable. Bladder: Bladder is underdistended and suboptimally evaluated. No gross abnormality identified. Abdominal wall: Moderate-sized direct fat containing left inguinal hernia. There is a small fat containing right inguinal hernia. Bones: No acute fracture or suspicious intraosseous lesion. IMPRESSION: 1. Scattered colonic diverticula without adjacent inflammatory changes to suggest diverticulitis. 2. Nonspecific nondilated fluid-filled small bowel loops. Findings may be seen with ileus or enteritis in the appropriate clinical setting. No small bowel obstruction. 3. Moderate fat containing left inguinal hernia. Small fat containing right inguinal hernia. 4. Layering density in the gallbladder, possible sludge or layering gallstones. Correlate with clinical findings. If clinically indicated, ultrasound could be obtained. ORDERING PHYSICIAN: RAKAN CARTER MD PROCEDURE(s): ABDL - ABDOMEN LIMITED REASON: RUQ pain ORDER NUMBER(s): [id number], ACCESSION NUMBER(s): [id number] INDICATION: RUQ pain TECHNIQUE: Multiple real-time sonographic images were obtained of the right upper quadrant. COMPARISON: None FINDINGS: The liver demonstrates increased echotexture without focal mass lesions. The liver measures 18.1 cm. There is no intrahepatic or extrahepatic ductal dilatation. The common duct measures 0.6 cm. The gallbladder is without evidence of stone or sludge. The gallbladder wall measures 0.3 cm and is within normal limits. The right kidney measures 11.7 cm. The right kidney is normal in contour, size, and shape. The echogenicity is normal. There is no hydronephrosis. The pancreas is not well visualized due to overlying bowel gas. IMPRESSION: Hepatic steatosis. Hepatomegaly. SEPSIS Sepsis Screen Date sepsis recognized/suspect: Sep 11, 2024 Time Sepsis recognized/suspect: 1118 Recent Procedure: No On Antibiotic Therapy: No Respiratory Rate >20: No Heart Rate >90: No Temp<36 C (96.8 F) or >38.3 C: No SBP <90 or MAP <65 mmHG: No New Acute Mental Status Change: No Is the patient on CPAP, BIPAP,: No Physician Orders Ct Ab Pel Wo Con-No Oral Or Iv (09/11/24 11:04) Blood Culture (09/11/24 12:38) Abdomen Limited (09/11/24 12:40) Pantoprazole (Protonix) (09/12/24 10:00) Metronidazole 500mg/100ml (Flagyl 500mg/ (09/11/24 14:00) Hydralazine Injection (Apresoline Inject (09/11/24 13:30) Allergies (09/11/24 13:17) Code Status (09/11/24 13:17) Sodium Chloride 0.9% (09/11/24 13:30) Oxygen Per Hour (09/11/24 13:17) Hydrocodone-Acet 5/325mg Tab ([place] 5/32 (09/11/24 13:30) Ondansetron Hcl (Zofran) (09/11/24 13:30) Docusate Sodium Capsule (Colace Capsule) (09/11/24 13:30) Complete Blood Count (09/12/24 04:00) Comprehensive Metabolic Panel (09/12/24 04:00) Condition: Serious (09/11/24 13:17) Acetaminophen Tablet (Tylenol Tablet) (09/11/24 13:30) Clear Liq Diet (09/11/24 Lunch) Bedrest With Bathroom Privileg (09/11/24 13:17) Morphine Sulfate Injection (09/11/24 13:30) Sequential Compression Device (09/11/24 ) Ceftriaxone 1gm/50ml D5w (Rocephin) (09/11/24 13:52) Vital Signs Date Time Temp Pulse Resp B/P (MAP) Pulse Ox O2 Delivery O2 Flow Rate FiO2 09/11/24 14:58 78 18 134/96 (109) 99 09/11/24 12:24 83 18 152/97 09/11/24 11:38 83 20 138/85 09/11/24 11:19 83 20 98 Room Air* 0 21 09/11/24 11:18 98.3 83 20 138/85 (102) 98 98.3 09/11/24 10:56 98.1 84 18 156/92 (113) 98 98.1 Laboratory Tests Test 09/11/24 11:20 09/11/24 12:53 White Blood Count 11.3 10^3/uL (4.4-10.8) H Lactic Acid Level 2.0 mmol/L (0.4-2.0) Medications Medications Dose Ordered Sig/Georgina Route Start Time Stop Time Status Last Admin Dose Admin Ceftriaxone Sodium 50 ml @ 100 mls/hr DAILY@09 IV 09/11/24 13:52 09/11/24 14:30 100 MLS/HR Metronidazole 100 ml @ 100 mls/hr Q8HR IV 09/11/24 14:00 09/11/24 14:50 100 MLS/HR Morphine Sulfate 4 mg ONCE ONCE IV 09/11/24 11:15 09/11/24 11:16 DC 09/11/24 11:38 4 MG Ondansetron HCl 4 mg ONCE ONCE IV 09/11/24 11:15 09/11/24 11:16 DC 09/11/24 11:36 4 MG Pantoprazole Sodium 40 mg ONCE ONCE IV 09/11/24 11:15 09/11/24 11:16 DC 09/11/24 11:36 40 MG Piperacillin Sod/ Tazobactam Sod 100 ml @ 100 mls/hr ONCE ONCE IV 09/11/24 12:45 09/11/24 13:44 DC 09/11/24 13:32 100 MLS/HR Sodium Chloride 2,000 ml @ 1,000 mls/hr Q2H ONCE IV 09/11/24 11:15 09/11/24 13:14 DC 09/11/24 11:38 1,000 MLS/HR Assessment/Plan Assessment/Plan Acute abdominal pain Vomiting and diarrhea Transaminitis Leukocytosis, unspecified Hyperbilirubinemia Upper abdominal pain, unspecified Plan 1. Admit to med surge unit 2. Breathing treatment 3. Pain control management 4. IV antibiotic management 5. Management of fluids and electrolytes 6. Consultation for hospitalist/GI 7. Diagnostic test abdomen/pelvis CT 8. DVT prophylaxis on SCDs 9. Repeat labs CBC, CMP in a.m. 10. Home medication reviewed and reconciled 11. Continue with current medical management 12. Treatment plan discussed with patient and RN. Patient verbalized understanding. Plan discussed with: Patient, Other (RN) My Orders Orders - YURIY MONTESINOS DNP Procedure Category Date Status Time Pantoprazole PHA 09/12/24 In Process (Protonix) 10:00 Metronidazole PHA 09/11/24 In Process 500mg/100ml (Flagyl 14:00 Hydralazine Injection PHA 09/11/24 In Process (Apresoline Inject 13:30 Allergies VOLODYMYR 09/11/24 In Process 13:17 Code Status CODE 09/11/24 Transmitted 13:17 Sodium Chloride 0.9% PHA 09/11/24 In Process 13:30 Oxygen Per Hour RT 09/11/24 Transmitted 13:17 Hydrocodone-Acet PHA 09/11/24 In Process 5/325mg Tab ([place]erson 13:30 Ondansetron Hcl PHA 09/11/24 In Process (Zofran) 13:30 Docusate Sodium PHA 09/11/24 In Process Capsule (Colace 13:30 Complete Blood Count LAB 09/12/24 Verified 04:00 Comprehensive LAB 09/12/24 Verified Metabolic Panel 04:00 Condition: Serious VOLODYMYR 09/11/24 In Process 13:17 Acetaminophen Tablet PHA 09/11/24 In Process (Tylenol Tablet) 13:30 Clear Liq Diet DIET 09/11/24 Transmitted Lunch Bedrest With Bathroom VOLODYMYR 09/11/24 In Process Privileg 13:17 Morphine Sulfate PHA 09/11/24 In Process Injection 13:30 Sequential VOLODYMYR 09/11/24 In Process Compression Device Ceftriaxone 1gm/50ml PHA 09/11/24 In Process D5w (Rocephin) 13:52 Problem List: (1) Vomiting and diarrhea (2) Acute abdominal pain (3) Transaminitis (4) Leukocytosis, unspecified (5) Hyperbilirubinemia (6) Upper abdominal pain, unspecified Date of Service: Sep 11, 2024 Billing Provider: YURIY MONTESINOS DNP Common Visit Codes: [id number] INP/OBS CARE (HIGH) YURIY MONTESINOS DNP Sep 11, 2024 15:45
[2024-09-11 16:22] VITALS: BP 136/84; PULSE 77; RESP 16; TEMP 98.9; O2SAT 95
[2024-09-11 20:30] VITALS: BP 123/71; PULSE 73; RESP 16; TEMP 97.9; O2SAT 97
[2024-09-11 22:40] VITALS: BP 132/78; PULSE 74; RESP 19; TEMP 98.1; O2SAT 96
[2024-09-11 22:54] VITALS: PULSE 74; RESP 18; RESP 19; O2SAT 96
[2024-09-12] VITALS (7 sets, daily range): BP systolic 110–131; BP diastolic 75–84; PULSE 57–74; RESP 14–18; TEMP 98–98.7; O2SAT 95–99
[2024-09-12 08:22] LABS: Hematocrit 42.7 % (41.0-53.0); Hemoglobin 14.5 g/dL (13.5-17.5); Mean Corpuscular Hemoglobin 32.1 pg (28.0-32.0); Mean Corpuscular Volume 94.7 fL (80.0-100.0); Nucleated Red Blood Cells % 0.0 %
[2024-09-12 08:23] LABS: Anion Gap 9 (5-15); BUN/Creatinine Ratio 12.9 (10.0-20.0); Calcium 9.7 mg/dL (8.7-10.4); Carbon Dioxide 21 mmol/L (20-31); Chloride 105 mmol/L (98-107); Glucose 91 mg/dL (74-106); Potassium 3.9 mmol/L (3.5-5.1)
[2024-09-12 08:24] LABS: Albumin 4.6 g/dL (3.2-4.8); Total Protein 6.8 g/dL (5.7-8.2)
[2024-09-12 08:25] LABS: Alanine Aminotransferase 233 U/L (7-40); Alkaline Phosphatase 369 U/L (46-116); Blood Urea Nitrogen 9 mg/dL (9-23); Sodium 135 mmol/L (136-145)
[2024-09-12 08:31] LABS: Bilirubin, Total 1.6 mg/dL (0.2-1.0)
[2024-09-12] MEDS: PANTOPRAZOLE 40 MG/10 ML VIAL INJ IV SCH (08:51)
--- NOTE | 2024-09-12 13:19 | DVHINCON2 ---
GI Consult Consult Note GI consult note Date of Consultation: 09/12/2024 Chief Complaint: Hyperbilirubinemia Referring Physician: Dr. Clarke H&P: 38-year-old male with past medical history of hypertension and seizure disorders noncompliant with medications, presented to ER with complains of abdominal pain mostly in the upper abdomen, for the past three days. Patient admits to having nausea and vomiting, no hematemesis. Denies melena or red blood in stool. Patient has noticed dark yellow to orange urine for the past one-week Patient admits to drinking alcohol 2 tall cans about 4 times per week. Denies history of hepatitis. Positive for marijuana use. Patient recently started on new supplements unsure about name taking two pills twice a day Past Medical History: HTN, seizures Past Surgical History: Hernia repair Social History: NO smoking, +drinking ETOH + marijuana use Family History: Noncontributory Review of Systems: Constitutional: no fever, chill, weight loss HEENT: no eye pain, no hearing loss, no oral lesion, no scleral icterus Heart: no chest pain, no chest pressure Lung: no cough, no dyspnea with exertion Abdomen: see HPI Physical exam: General: NAD, AAOX3 Chest: lung ramirez clear to auscultation Heart: RRR, no murmur Abdomen: non-distended, no tenderness to palpation, +BS Labs: Labs Test 09/12/24 06:59 09/11/24 12:53 09/11/24 11:20 09/11/24 10:58 Range/Units White Blood Count 9.4 4.4-10.8 10^3/uL Red Blood Count 4.51 4.5-5.90 10^6/uL Hemoglobin 14.5 13.5-17.5 g/dL Hematocrit 42.7 41.0-53.0 % Mean Corpuscular Volume 94.7 80.0-100.0 fL Mean Corpuscular Hemoglobin 32.1 H 28.0-32.0 pg Mean Corpuscular Hemoglobin Concent 33.9 32.0-36.0 g/dL Red Cell Distribution Width 14.4 H 11.8-14.3 % Platelet Count 224 140-450 10^3/uL Mean Platelet Volume 8.5 6.9-10.8 fL Neutrophils (%) (Auto) 74.9 37.0-80.0 % Lymphocytes (%) (Auto) 12.1 10.0-50.0 % Monocytes (%) (Auto) 9.7 0.0-12.0 % Eosinophils (%) (Auto) 3.0 0.0-7.0 % Basophils (%) (Auto) 0.3 0.0-2.0 % Neutrophils # (Auto) 7.0 1.6-8.6 10 ^3/uL Lymphocytes # (Auto) 1.1 0.4-5.4 10 ^3/uL Monocytes # (Auto) 0.9 0-1.3 10 ^3/uL Eosinophils # (Auto) 0.3 0-0.8 10 ^3/uL Basophils # (Auto) 0 0-0.2 10 ^3/uL Nucleated Red Blood Cells 0.0 % Sodium Level 135 L 136-145 mmol/L Potassium Level 3.9 3.5-5.1 mmol/L Chloride Level 105 98-107 mmol/L Carbon Dioxide Level 21 20-31 mmol/L Anion Gap 9 5-15 Blood Urea Nitrogen 9 9-23 mg/dL Creatinine 0.70 0.700-1.30 mg/dL Glomerular Filtration Rate Calc 119 >90 mL/min BUN/Creatinine Ratio 12.9 10.0-20.0 Serum Glucose 91 74-106 mg/dL Calcium Level 9.7 8.7-10.4 mg/dL Total Bilirubin 1.6 H 0.2-1.0 mg/dL Aspartate Amino Transferase (AST) 60 H 13-40 U/L Alanine Aminotransferase (ALT) 233 H 7-40 U/L Alkaline Phosphatase 369 H 46-116 U/L Total Protein 6.8 5.7-8.2 g/dL Albumin 4.6 3.2-4.8 g/dL Lactic Acid Level 2.0 0.4-2.0 mmol/L Lipase 69 H 12-53 U/L Urine Color Dark-yellow Yellow Urine Clarity Clear Clear Urine pH 6.5 5.0-9.0 Urine Specific [place] 1.038 H 1.001-1.035 Urine Protein 1+ H Negative Urine Ketones 2+ H Negative Urine Blood Negative Negative /uL Urine Nitrite Negative Negative Urine Bilirubin 1+ Negative Urine Urobilinogen 12 H Negative mg/dL Urine Leukocyte Esterase Negative Negative /uL Urine RBC 1 0 - 3 /hpf Urine Microscopic WBC 1 0-3 /HPF Urine Squamous Epithelial Cells None seen <5 /hpf Urine Bacteria None seen None Seen /hpf Urine Mucus Moderate None Seen Urine Glucose Normal Normal mg/dL Microbiology Date/Time Source Procedure Growth Status 09/11/24 12:53 Blood Blood Culture - Preliminary NO GROWTH AFTER 24 HOURS OF INCUBATION. Resulted Imaging: CT abdomen pelvis IMPRESSION: 1. Scattered colonic diverticula without adjacent inflammatory changes to suggest diverticulitis. 2. Nonspecific nondilated fluid-filled small bowel loops. Findings may be seen with ileus or enteritis in the appropriate clinical setting. No small bowel o bstruction. 3. Moderate fat containing left inguinal hernia. Small fat containing right inguinal hernia. 4. Layering density in the gallbladder, possible sludge or layering gallstones. Correlate with clinical findings. If clinically indicated, ultrasound could be obtained. Abdominal ultrasound IMPRESSION: Hepatic steatosis. Hepatomegaly. Assessment: Abdominal pain Elevated LFT Hepatic steatosis Plan: Discussed with Dr. Tiwari Hepatitis panel PT INR Lipase and CMP in a.m. Continue supportive care DC alcohol discussed extensively Discussed plan with patient and RN Thank you for this consult Date of Service: Sep 12, 2024 Billing Provider: BHAVNA PHILLIPS Common Visit Codes: CONSULT ONLY Consultation Codes: [id number] CONSULT <60MIN BHAVNA PHILLIPS Sep 12, 2024 13:19
[2024-09-12 14:05] LABS: INR 0.97 (0.9-1.15); Prothrombin Time 10.3 sec (9.3-11.8)
[2024-09-12] MEDS: HYDROcodone-ACET 5/325MG TAB PO PRN (16:32)
--- NOTE | 2024-09-12 23:28 | DVHPN2 ---
Subjective in bed feeling well Reviewed: H&P, Labs Changes from previous H/P or p: No Changes Eyes: No Pain, No Vision change, No Conjunctivae inflammation, No Eyelid inflammation, No Other, No Redness ENT: No Ear pain, No Ear discharge, No Nose pain, No Nose discharge, No Nose congestion, No Mouth pain, No Mouth swelling, No Throat pain, No Throat swelling, No Other Cardiovascular: No Chest Pain, No Palpitations, No Orthopnea, No Paroxysmal Noc. Dyspnea, No Edema, No Lt Headedness, No Other Respiratory: No Cough, No Dry, No Shortness of breath, No SOB with excertion, No Wheezing, No Hemoptysis, No Pleuritic Pain, No Sputum, No Other Gastrointestinal: Nausea, Vomiting; No Abdominal Pain, No Diarrhea, No Constipation, No Melena, No Hematochezia, No Other Genitourinary: No Dysuria, No Frequency, No Incontinence; Hematuria; No Retention, No Other Musculoskeletal: No other, No neck pain, No shoulder pain, No arm pain, No back pain, No hand pain, No leg pain, No foot pain Skin: No Rash, No Lesions, No Jaundice, No Bruising, No Other Objective Vitals Vital Signs Date Time Temp Pulse Resp B/P (MAP) Pulse Ox O2 Delivery O2 Flow Rate FiO2 09/12/24 21:00 98.0 64 18 131/81 (98) 98 98.0 09/12/24 08:00 Room Air* 0 21 Intake/Output Intake and Output 09/12/24 07:00 Intake Total 750 ml Balance 750 ml Intake Oral 600 ml IV Total 150 ml # Voids 4 General Appearance: Alert, Oriented X3 HEENT: Atraumatic Lungs: Clear to auscultation Cardiovascular: Regular rate, Normal S1, Normal S2 Abdomen: Normal bowel sounds Medications Current Medications Medications Dose Ordered Sig/Georgina Route Start Time Stop Time Status Last Admin Dose Admin Pantoprazole Sodium 40 mg DAILY IV 09/12/24 10:00 09/12/24 08:51 40 MG Metronidazole 100 ml @ 100 mls/hr Q8HR IV 09/11/24 14:00 09/12/24 21:18 100 MLS/HR Ceftriaxone Sodium 50 ml @ 100 mls/hr DAILY@09 IV 09/11/24 13:52 09/12/24 08:52 100 MLS/HR Hydralazine HCl 10 mg Q6HP PRN IV 09/11/24 13:30 Sodium Chloride 1,000 ml @ 60 mls/hr [id number] IV 09/11/24 13:30 Acetaminophen/ Hydrocodone Bitart 1 tab Q4HP PRN PO 09/11/24 13:30 09/12/24 21:28 1 TAB Ondansetron HCl 4 mg Q4HP PRN IV 09/11/24 13:30 Docusate Sodium 100 mg BIDPRN PRN PO 09/11/24 13:30 Acetaminophen 650 mg Q6HP PRN PO 09/11/24 13:30 Morphine Sulfate 2 mg Q4HPRN PRN IV 09/11/24 13:30 Nitroglycerin 0.4 mg Q5MINP PRN SL 09/11/24 15:45 Morphine Sulfate 2 mg Q30M PRN IV 09/11/24 15:45 Laboratory Results Laboratory Tests 09/12/24 06:59 Chemistry Test 09/12/24 06:59 Albumin 4.6 g/dL (3.2-4.8) Calcium Level 9.7 mg/dL (8.7-10.4) Total Protein 6.8 g/dL (5.7-8.2) Coagulation Test 09/12/24 13:25 Prothrombin Time 10.3 sec (9.3-11.8) Prothrombin Time INR 0.97 (0.9-1.15) LFT Test 09/12/24 06:59 Alanine Aminotransferase (ALT) 233 U/L (7-40) H Alkaline Phosphatase 369 U/L (46-116) H Aspartate Amino Transferase (AST) 60 U/L (13-40) H Total Bilirubin 1.6 mg/dL (0.2-1.0) H Urinalysis Test 09/11/24 10:58 Urine Color Dark-yellow (Yellow) Urine Clarity Clear (Clear) Urine pH 6.5 (5.0-9.0) Urine Specific [place] 1.038 (1.001-1.035) Urine Protein 1+ (Negative) H Urine Ketones 2+ (Negative) H Urine Blood Negative /uL (Negative) Urine Nitrite Negative (Negative) Urine Bilirubin 1+ (Negative) Urine Urobilinogen 12 mg/dL (Negative) H Urine Leukocyte Esterase Negative /uL (Negative) Urine RBC 1 /hpf (0 - 3) Urine Microscopic WBC 1 /HPF (0-3) Urine Squamous Epithelial Cells None seen /hpf (<5) Urine Bacteria None seen /hpf (None Seen) Urine Mucus Moderate (None Seen) Urine Glucose Normal mg/dL (Normal) Microbiology Microbiology Date/Time Source Procedure Growth Status 09/11/24 12:53 Blood Blood Culture - Preliminary NO GROWTH AFTER 24 HOURS OF INCUBATION. Resulted Assessment/Plan Assessment/Plan Acute abdominal pain Vomiting and diarrhea Transaminitis Leukocytosis, unspecified Hyperbilirubinemia Upper abdominal pain, unspecified GI consulted IV abx with flagyl and ceftriaxone monitor lfts hepatitis panel Plan discussed with: Patient My Orders Orders - ADAN PACHECO MD Procedure Category Date Status Time * Gi Dvh [employer] Worker CONS 09/12/24 Transmitted 09:53 Date of Service: Sep 12, 2024 Billing Provider: ADAN PACHECO MD Common Visit Codes: [id number] INP/OBS CARE(HIGH) ADAN PACHECO MD Sep 12, 2024 23:28
[2024-09-13 05:00] VITALS: BP 124/96; PULSE 70; RESP 18; TEMP 98.5; O2SAT 98
[2024-09-13 07:40] LABS: Albumin 4.7 g/dL (3.2-4.8); Anion Gap 9 (5-15); BUN/Creatinine Ratio 12.5 (10.0-20.0); Bilirubin, Total 1.0 mg/dL (0.2-1.0); Blood Urea Nitrogen 10 mg/dL (9-23); Calcium 9.6 mg/dL (8.7-10.4); Carbon Dioxide 24 mmol/L (20-31); Chloride 103 mmol/L (98-107); Glucose 97 mg/dL (74-106); Potassium 4.1 mmol/L (3.5-5.1); Sodium 136 mmol/L (136-145); Total Protein 7.2 g/dL (5.7-8.2)
[2024-09-13 07:52] LABS: Alanine Aminotransferase 192 U/L (7-40); Alkaline Phosphatase 385 U/L (46-116)
[2024-09-13 08:00] VITALS: PULSE 71; RESP 18; O2SAT 99
[2024-09-13 08:02] LABS: Lipase 82 U/L (12-53)
[2024-09-13 09:00] VITALS: BP 116/80; PULSE 71; RESP 18; TEMP 97.8; O2SAT 99
[2024-09-13 11:08] LABS: Hepatitis A Total Antibody Positive (Negative)
[2024-09-13 11:09] LABS: Hepatitis B Surface Antigen Negative (Negative); Hepatitis C Antibody Negative (Negative)
[2024-09-13 13:00] VITALS: BP 127/85; PULSE 80; RESP 18; TEMP 97.5; O2SAT 98
--- NOTE | 2024-09-13 16:15 | DVHPN2 ---
Progress Note - Dictate Date Seen: Sep 13, 2024 Medical Necessity Reason Pt with a Central, PICC or Fol: No Subjective Patient was complaining of postprandial dyspepsia and epigastric pain Patient was concerned about his hepatitis-C being positive but actually is hep C antibody is negative vital signs Vital Sign Date Time Temp Pulse Resp B/P (MAP) Pulse Ox O2 Delivery O2 Flow Rate FiO2 09/13/24 13:00 97.5 80 18 127/85 (99) 98 97.5 09/13/24 08:00 Room Air* 0 21 Total Intake and Output 09/12/24 09/12/24 09/13/24 15:00 23:00 07:00 Intake Total 150 ml 550 ml Balance 150 ml 550 ml medications Current Medications Medications Dose Ordered Sig/Georgina Route Start Time Stop Time Status Last Admin Dose Admin Pantoprazole Sodium 40 mg DAILY IV 09/12/24 10:00 09/13/24 09:26 40 MG Metronidazole 100 ml @ 100 mls/hr Q8HR IV 09/11/24 14:00 09/13/24 13:42 100 MLS/HR Ceftriaxone Sodium 50 ml @ 100 mls/hr DAILY@09 IV 09/11/24 13:52 09/13/24 09:27 100 MLS/HR Hydralazine HCl 10 mg Q6HP PRN IV 09/11/24 13:30 Sodium Chloride 1,000 ml @ 60 mls/hr [id number] IV 09/11/24 13:30 Acetaminophen/ Hydrocodone Bitart 1 tab Q4HP PRN PO 09/11/24 13:30 09/12/24 21:28 1 TAB Ondansetron HCl 4 mg Q4HP PRN IV 09/11/24 13:30 Docusate Sodium 100 mg BIDPRN PRN PO 09/11/24 13:30 Acetaminophen 650 mg Q6HP PRN PO 09/11/24 13:30 Morphine Sulfate 2 mg Q4HPRN PRN IV 09/11/24 13:30 Nitroglycerin 0.4 mg Q5MINP PRN SL 09/11/24 15:45 Morphine Sulfate 2 mg Q30M PRN IV 09/11/24 15:45 objective General: NAD, AAOX3 Chest: lung ramirez clear to auscultation Heart: RRR, no murmur Abdomen: non-distended, no tenderness to palpation, +BS laboratory and microbiology Laboratory Tests 09/13/24 06:05 09/12/24 06:59 Test 09/13/24 06:05 Range/Units Serum Glucose 97 74-106 mg/dL Problems(with codes): (1) Upper abdominal pain, unspecified (2) Leukocytosis, unspecified (3) Acute abdominal pain (4) Transaminitis (5) Abdominal pain (6) Hyperbilirubinemia (7) Seizure disorder (8) Drug abuse, marijuana Prognosis Plan Leukocytosis is improved; liver enzymes are trending down Lipase is still elevated 82 Hepatitis panel is negative Patient was given reassurance and my contact information He is going to follow up in my office as an outpatient for me to continue to monitor his liver Patient has been counseled about discontinuing alcohol marijuana Plan discussed with: Patient, Other (Nurse) SANDRO CASTILLO MD Sep 13, 2024 16:15
== END 2024-09-13 17:00 | disposition home or self-care (01) | DRG 244 ==
LOC: ER 10:42 → OVERFLOW 15:42 → WEST WING 22:00
PROVIDERS: ADMIT Hospitalist; ATTEND Hospitalist
DX: K57.92 Diverticulitis of intestine, part unspecified, without perforation or abscess without bleeding (principal); K76.0 Fatty (change of) liver, not elsewhere classified; D72.829 Elevated white blood cell count, unspecified; I10 Essential (primary) hypertension; G40.909 Epilepsy, unspecified, not intractable, without status epilepticus; R74.01 Elevation of levels of liver transaminase levels; E80.6 Other disorders of bilirubin metabolism; R79.89 Other specified abnormal findings of blood chemistry; Z91.148 Patient's other noncompliance with medication regimen for other reason
CPT/HCPCS: 36415; 74176; 76705; 80053; 81001; 82140; 83605; 83690; 85025; 85610; 86704; 86706; 86708; 86803; 87040; 87340; 96374; 96375; G0378; J2405; J2470; J2543; J3490